=== PATIENT | female | born 1980 | race Caucasian/White ===

== ENCOUNTER 2016-07-31 16:06 | Emergency (ER) | payer BC ==
[~2016-07-31] VITALS: Ht 165.1 cm; Wt 86.2 kg
[~2016-07-31 16:06] MED LIST: NORPTMEDS CO
[2016-07-31 16:10] VITALS: BP 119/68
== END 2016-07-31 18:44 | disposition home or self-care (01) ==
LOC: EDBD 16:06 → ER 16:19
DX: S46.911A Strain of unspecified muscle, fascia and tendon at shoulder and upper arm level, right arm, initial encounter (principal); M54.2 Cervicalgia; V43.62XA Car passenger injured in collision with other type car in traffic accident, initial encounter; Y93.89 Activity, other specified; Y99.8 Other external cause status; Y92.89 Other specified places as the place of occurrence of the external cause
CPT/HCPCS: 73060